=== PATIENT | male | born 1965 | race Caucasian/White ===

== ENCOUNTER 2017-03-05 00:16 | Emergency (ER) | payer OTHER ==
[~2017-03-05] VITALS: Ht 177.8 cm; Wt 72.7 kg
[2017-03-05 00:21] VITALS: Ht 177.8 cm; Wt 72.7 kg
[2017-03-05] MEDS ORDERED: SOD CHLORIDE 0.9% 1,000 ML IV STA (00:33)
--- NOTE | 2017-03-05 01:12 | RADRPT ---
PROCEDURE: Noncontrast CT Head. CLINICAL INDICATION: Altered mental status TECHNIQUE: Noncontrast CT of the head was obtained. The administered radiation dose was CTDI vol = 44 mGy, DLP = 720 mGy-cm. COMPARISON: No pertinent prior examinations were submitted for comparison. FINDINGS: The ventricles and sulci are within normal limits. There is no acute intracranial hemorrhage or ext ra-axial fluid collection. There is no mass effect. No midline shift is identified. There is no loss of cote-white differentiation to suggest acute infarction. The orbits are within normal limits. The paranasal sinuses and mastoid air cells are without fluid. No destructive osseous lesion is identified. IMPRESSION: No acute findings. RPTAT: HIKT .Mihir Beckman MD, MD Date Time Electronically viewed and signed by .Mihir Beckman MD, on 03/05/2017 01:11 .T/
[2017-03-05 01:40] LABS: WHITE BLOOD COUNT 10.9 10^3/ul (4.8-10.8)
[2017-03-05 01:41] LABS: ABNORMAL IP MESSAGE 1; BASOPHIL # 0.1 10^3/ul (0.0-0.1); BASOPHILS % 0.5 % (0.0-2.0); EOSINOPHILS # 0.3 10^3/ul (0.0-0.5); EOSINOPHILS % 2.5 % (0.0-7.0); HEMATOCRIT 40.5 % (42.0-52.0); LYMPHOCYTES # 3.4 10^3/ul (0.8-2.9); MEAN CORPUSCULAR HEMOGLOBIN 30.6 pg (29.0-33.0); MEAN CORPUSCULAR HGB CONC 34.6 g/dl (32.0-37.0); MEAN CORPUSCULAR VOLUME 88.6 fl (82.0-101.0); MONOCYTES % 8.8 % (0.0-11.0); NEUTROPHIL # 6.2 10^3/ul (1.6-7.5); NEUTROPHILS % 56.8 % (39.0-77.0); PLATELET COUNT 74 10^3/UL (140-415); POSITIVE DIFF @See below; RED BLOOD COUNT 4.57 10^6/ul (4.70-6.10); RED CELL DISTRIBUTION WIDTH 12.3 % (11.5-14.5)
[2017-03-05 01:43] LABS: ADD UMIC NO; UR ASCORBIC ACID NEGATIVE (NEGATIVE); UR BILIRUBIN (Dip) NEGATIVE (NEGATIVE); UR BLOOD (Dip) NEGATIVE (NEGATIVE); UR CLARITY CLEAR (CLEAR); UR COLOR YELLOW (YELLOW); UR GLUCOSE (Dip) NEGATIVE (NEGATIVE); UR KETONES (Dip) TRACE mg/dL (NEGATIVE); UR LEUKOCYTE ESTERASE (Dip) NEGATIVE Leu/ul (NEGATIVE); UR NITRITE (Dip) NEGATIVE (NEGATIVE); UR SPECIFIC GRAVITY (Dip) 1.026 (1.003-1.030); UR TOTAL PROTEIN (Dip) NEGATIVE (NEGATIVE); UR UROBILINOGEN (Dip) 1+ mg/dL (NEGATIVE)
[2017-03-05 01:53] LABS: INR 0.94; PROTIME 12.6 Sec (12.2-14.2)
[2017-03-05 01:54] LABS: PARTIAL THROMBOPLASTIN TIME 25.1 Sec (25.0-35.0)
[2017-03-05 01:57] LABS: ALANINE AMINOTRANSFERASE 32 IU/L (13-69); ALBUMIN/GLOBULIN RATIO 1.48; ALKALINE PHOSPHATASE 75 IU/L (42-121); ANION GAP 18 (8-16); ASPARTATE AMINO TRANSFERASE 20 IU/L (15-46); BILIRUBIN,INDIRECT 0.1 mg/dl (0-1.1); BILIRUBIN,TOTAL 0.1 mg/dl (0.2-1.3); BLOOD UREA NITROGEN 29 mg/dl (7-20); CALCIUM 8.9 mg/dl (8.4-10.2); CARBON DIOXIDE 27 mmol/L (21-31); CHLORIDE 99 mmol/L (97-110); CREATININE 1.19 mg/dl (0.61-1.24); GLUCOSE 97 mg/dl (70-220); POTASSIUM 3.7 mmol/L (3.5-5.1); SODIUM 140 mmol/L (135-144); TOTAL PROTEIN 6.7 g/dl (6.1-8.1)
[2017-03-05 02:13] LABS: T3 UPTAKE 33.6 % (23.5-40.5)
[2017-03-05 02:18] LABS: ACETAMINOPHEN < 10.0 ug/ml (10.0-30.0); ETHANOL < 10.0 mg/dl; SALICYLATE < 1.0 mg/dl (5.0-30.0)
--- NOTE | 2017-03-05 02:18 | RADRPT ---
PROCEDURE: US left lower extremity venous Doppler CLINICAL INDICATION: Swelling TECHNIQUE: Multiple sonographic images of the left lower extremity deep venous system was obtained utilizing grayscale, color-flow, compressive sonography and Doppler imaging with augmentation. COMPARISON: No pertinent prior examinations were submitted for comparison. FINDINGS: There is normal compressibility and flow within the left common femoral, superficial femoral, poplit eal, and calf veins. IMPRESSION: No sonographic evidence for left deep venous thrombosis. RPTAT: HIKT .Mihir Beckman MD, MD Date Time Electronically viewed and signed by .Mihir Beckman MD, on 03/05/2017 02:18 .T/
[2017-03-05 02:24] LABS: TROPONIN-I < 0.012 ng/ml (0.00-0.12)
[2017-03-05 02:29] LABS: BARBITURATES Negative (NEGATIVE); BENZODIAZEPINES Negative (NEGATIVE); CANNABINOIDS Positive (NEGATIVE); COCAINE Negative (NEGATIVE); OPIATES Negative (NEGATIVE)
[2017-03-05] MEDS ORDERED: KETOROLAC 30 MG INJ IV STA (02:34)
--- NOTE | 2017-03-05 02:42 | ERD ---
ER Documentation Chief Complaint Date/Time DATE: 03/05/17 TIME: 02:36 Chief Complaint BIBA [id number], left inner thigh pain, "brain feels drunk"denies [place] HPI This 51-year-old male presents emergency room for sudden left upper thigh pain and muscle cramping that lasted approximately 30 minutes. The cramp was severe in his whole upper anterior thigh muscle was contracted. It still feels sore. States that after the crampy felt very lightheaded because he had sweat. He feels as this though he is drunk even though he has not drank anything for 2 years. He does smoke marijuana recreationally. He denies head injury. ROS All systems reviewed and are negative except as per history of present illness. Allergies Allergies: Coded Allergies: No Known Allergy (Unverified , 03/05/17) PMhx/Soc History of Surgery: No Anesthesia Reaction: No Hx Neurological Disorder: No Hx Respiratory Disorders: No Hx Cardiac Disorders: No Hx Psychiatric Problems: No Hx Miscellaneous Medical Probl: No Hx Alcohol Use: No Hx Substance Use: Yes (MARIJUANA) Hx Tobacco Use: No Smoking Status: Never smoker Physical Exam Vitals Vital Signs Date Time Temp Pulse Resp B/P Pulse Ox O2 Delivery O2 Flow Rate FiO2 03/05/17 00:50 71 18 110/66 96 03/05/17 00:21 98.0 73 18 105/58 96 Physical Exam Const: [] Mild distress Head: Atraumatic Eyes: Normal Conjunctiva ENT: Normal External Ears, Nose and Mouth. Neck: Full range of motion..~ No meningismus. Resp: Clear to auscultation bilaterally Cardio: Regular rate and rhythm, no murmurs Abd: Soft, non tender, non distended. Normal bowel sounds Skin: No petechiae or rashes Ext: No cyanosis, or edema, distal pulses intact all 4 extremities, mild tenderness to left inner thigh with normal appearance and no deformities. Neur: Awake and alert and oriented 3, cranial nerves II through XII intact, no cerebellar deficits, normal gait. Psych: Normal Mood and Affect Result Diagram: 03/05/17 0100 03/05/17 0100 Results 24 hrs Laboratory Tests Test 03/05/17 01:00 White Blood Count 10.910^3/ul Red Blood Count 4.5710^6/ul Hemoglobin 14.0g/dl Hematocrit 40.5% Mean Corpuscular Volume 88.6fl Mean Corpuscular Hemoglobin 30.6pg Mean Corpuscular Hemoglobin Concent 34.6g/dl Red Cell Distribution Width 12.3% Platelet Count 7410^3/UL Mean Platelet Volume fl Neutrophils % 56.8% Lymphocytes % 31.0% Monocytes % 8.8% Eosinophils % 2.5% Basophils % 0.5% Nucleated Red Blood Cells % 0.0/100WBC Neutrophils # 6.210^3/ul Lymphocytes # 3.410^3/ul Monocytes # 1.010^3/ul Eosinophils # 0.310^3/ul Basophils # 0.110^3/ul Nucleated Red Blood Cells # 0.010^3/ul Prothrombin Time 12.6Sec Prothrombin Time Ratio 1.0 INR International Normalized Ratio 0.94 Activated Partial Thromboplast Time 25.1Sec Urine Color YELLOW Urine Clarity CLEAR Urine pH 6.0 Urine Specific [place] 1.026 Urine Ketones TRACEmg/dL Urine Nitrite NEGATIVEmg/dL Urine Bilirubin NEGATIVEmg/dL Urine Urobilinogen 1+mg/dL Urine Leukocyte Esterase NEGATIVELeu/ul Urine Hemoglobin NEGATIVEmg/dL Urine Glucose NEGATIVEmg/dL Urine Total Protein NEGATIVEmg/dl Sodium Level 140mmol/L Potassium Level 3.7mmol/L Chloride Level 99mmol/L Carbon Dioxide Level 27mmol/L Anion Gap 18 Blood Urea Nitrogen 29mg/dl Creatinine 1.19mg/dl Glucose Level 97mg/dl Calcium Level 8.9mg/dl Total Bilirubin 0.1mg/dl Direct Bilirubin 0.00mg/dl Indirect Bilirubin 0.1mg/dl Aspartate Amino Transf (AST/SGOT) 20IU/L Alanine Aminotransferase (ALT/SGPT) 32IU/L Alkaline Phosphatase 75IU/L Ammonia 21umol/l Troponin I < 0.012ng/ml Total Protein 6.7g/dl Albumin 4.0g/dl Globulin 2.70g/dl Albumin/Globulin Ratio 1.48 Free Thyroxine Index 2.25ug/ml Thyroxine (T4) 6.7ug/dl Triiodothyronine (T3) Uptake 33.6% Salicylates Level < 1.0mg/dl Urine Opiates Screen Negative Acetaminophen Level < 10.0ug/ml Urine Barbiturates Negative Urine Amphetamines Screen Negative Urine Benzodiazepines Screen Negative Urine Cocaine Screen Negative Urine Cannabinoids Positive Ethyl Alcohol Level < 10.0mg/dl Current Medications Medications (Trade) Dose Ordered Sig/Laurie Route PRN Reason Start Time Stop Time Status Last Admin Dose Admin Sodium Chloride (NS) 1,000 ml @ 1,000 mls/hr Q1H STAT IV 03/05/17 00:33 03/05/17 01:32 DC 03/05/17 00:33 Ketorolac Tromethamine (Toradol) 30 mg ONCE STAT IV 03/05/17 02:34 03/05/17 02:35 UNV Procedures/MDM Muscle cramps with feeling of altered mental status following. Complete workup was performed for any possible cause of his altered mental status. Electrolytes are within normal limits. Patient has no signs of acute coronary syndrome. CT head shows no acute abnormality. He does have low platelets with no bleeding. I have very low suspicion for any stroke. Patient was hydrated with 500 cc of normal saline. He did feel better in the emergency room. No evidence of thyroid dysfunction or hyperammonemia. Liver function tests within normal limits. Vital signs were completely stable. I am going to discharge him with primary care follow-up in the next couple of days as well as return precautions. CT head interpretation: I see no acute process. I see no hemorrhage, no mass- effect or midline shift no skull fracture, no acute stroke EKG interpretation: Normal sinus rhythm rate of 65, normal axis, no ST or T- wave changes concerning for acute ischemia, normal intervals. Normal EKG environmental planner interpretation: Normal sinus rhythm without arrhythmia Left lower extremity venous ultrasound: No DVT or other vascular abnormality. Departure Diagnosis: Primary Impression: Muscle cramp Additional Impressions: Altered mental status Thrombocytopenia Condition: Stable PANCHOGARRETTFANNY DO Mar 05, 2017 02:42
[2017-03-05] MEDS ORDERED: NAPR-688 PO (02:59)
[2017-03-05] MEDS ORDERED: ORPH100T PO (02:59)
[2017-03-05 03:10] VITALS: BP 110/71; PULSE 71; RESP 18
== END 2017-03-05 03:14 | disposition home or self-care (01) ==
LOC: E/R 00:16
DX: R25.2 Cramp and spasm (principal); R41.82 Altered mental status, unspecified; D69.6 Thrombocytopenia, unspecified
CPT/HCPCS: 70450; 80053; 80306; 80307; 81003; 82140; 84436; 84479; 84484; 85025; 85610; 85730; 93971; J1885; J7030; 36415; 93005; 96361; 96374